=== PATIENT | male | born 1940 | race Caucasian/White ===

== ENCOUNTER 2024-01-21 18:19 | Inpatient (IN) ==
[2024-01-21 18:49] LABS: ABS Lymphocytes 0.5 10^3/uL (1.0-4.8); ABS Monocytes 0.9 10^3/uL (0.0-1.1); ABS Neutrophils 8.7 10^3/uL (1.5-7.6); Eosinophil % 0.3 %; Hematocrit 28.1 % (38-53); Hemoglobin 8.8 g/dL (13.2-16.3); Lymphocyte % 5.1 %; Mean Corpuscular Hemoglobin 26.6 pg (27-33); Mean Corpuscular Hgb Conc 31.3 g/dL (31-36); Mean Platelet Volume 8.7 fL (7.5-11.2); Platelet Count 207 10^3/uL (150-450); Red Cell Distribution Width 16.4 % (12-17); White Blood Count 10.1 10^3/uL (3.6-10.2)
[2024-01-21 18:59] LABS: INR 2.43 (0.85-1.14)
[2024-01-21 20:01] LABS: Albumin 3.9 g/dL (3.2-5.2); Albumin/Globulin Ratio 1.4 (1-3); C Reactive Protein 55.28 mg/L (<8.01); Calcium 9.3 mg/dL (8.6-10.3); Creatinine, Serum 3.41 mg/dL (0.67-1.17); Globulin 2.7 g/dL (2-4); Potassium 7.9 mmol/L (3.5-5.0); Total Bilirubin 0.7 mg/dL (0.2-1.0); Total Protein 6.6 g/dL (6.4-8.9); eGFR CKD-EPI 16.9 (>60)
[2024-01-21] MEDS: NS 0.9% 1000 ml BAG 1,000 ML IV.FLUID IV ONE (20:06)
[2024-01-21 20:12] LABS: High Sensitivity Troponin 1 Hr 21 pg/mL (<20)
[2024-01-21] MEDS: Albuterol 2.5mg/3 ml (0.083%) NEB.SOLN INH ONE (20:23)
[2024-01-21] MEDS: Sodium Bicarbonate 8.4% SYR 50 ml SYRINGE IV ONE (20:23)
[2024-01-21] MEDS: CALCIUM GLUCONATE 1GM/50ML NS 1 GM/50 ML BAG IV ONE (20:23)
[2024-01-21] MEDS: Bumetanide IV 0.25 MG/ML 4 ml VIAL (1 mg) IV SLOW PU ONE (20:58)
[2024-01-21] MEDS ORDERED: Calcium Gluconate 3 GM in NS 0.9% 250 ml 250 ML IVPB ONE (21:07)
[2024-01-21] MEDS: CALCIUM GLUCONATE 1GM/50ML NS BAG IV SCH (21:16)
[2024-01-21] MEDS: Chlorothiazide IV 500 mg VIAL IV ONE (21:38)
[2024-01-21] MEDS ORDERED: NS 0.9% 1000 ml BAG 100 ML IV PRN (21:46)
[2024-01-21] MEDS ORDERED: NS 0.9% 1000 ml BAG 200 ML IV PRN (21:46)
[2024-01-21] MEDS: Sodium Polystyrene ORAL.SUSP 15 GM/60 ML BTL PO ONE (21:49)
[2024-01-21] MEDS: Lidocaine 1% VIAL 10 MG/ML 30 ML VIAL ONE (22:07)
[2024-01-21] MEDS: Albumin Human 25% 0 GM/0 ML BTL IV ONE (22:08)
[2024-01-21] MEDS: Heparin 1,000 UNIT/ML 10 ml (10,000 UNITS) CATHLAB/DIALYSIS DIALYSIS PRN (23:44)
[2024-01-22] MEDS ORDERED: Dextrose 50% Syringe 50 ml 25 GM/50 ML SYRINGE IV PUSH PRN (01:59)
[2024-01-22] MEDS: Norepinephrine 4 MG/250mL D5W 4,000 MCG/250 ML BAG IV ONE (05:01)
[2024-01-22 05:35] LABS: ABS Eosinophils 0.1 10^3/uL (0.0-0.5); ABS Lymphocytes 0.7 10^3/uL (1.0-4.8); ABS Monocytes 0.8 10^3/uL (0.0-1.1); ABS Neutrophils 6.4 10^3/uL (1.5-7.6); ABS Nucleated RBC 0.01 10^3/ul; Eosinophil % 0.8 %; Hematocrit 27.3 % (38-53); Hemoglobin 8.8 g/dL (13.2-16.3); Lymphocyte % 8.5 %; Mean Corpuscular Hemoglobin 26.8 pg (27-33); Mean Corpuscular Hgb Conc 32.3 g/dL (31-36); Mean Corpuscular Volume 83.2 fL (80-97); Mean Platelet Volume 8.1 fL (7.5-11.2); Nucleated Red Blood Cells % 0.1 %/100WBC (0.0-0.8); Platelet Count 178 10^3/uL (150-450); Red Blood Count 3.28 10^6/uL (4.06-5.63); Red Cell Distribution Width 16.3 % (12-17)
[2024-01-22 05:52] LABS: Urine Appearance Turbid; Urine Bilirubin Negative (Negative); Urine Blood 3+ (Negative); Urine Color Yellow; Urine Glucose Negative (Negative); Urine Ketones Negative (Negative); Urine Nitrite Negative (Negative); Urine Protein Negative (Negative); Urine Specific Gravity 1.009 (1.002-1.030); Urine Urobilinogen Negative (Negative)
[2024-01-22 05:59] LABS: % Iron Saturation 9 % (15-55); ALT 34 U/L (7-52); AST 29 U/L (13-39); Albumin 3.8 g/dL (3.2-5.2); Albumin/Globulin Ratio 1.5 (1-3); Alkaline Phosphatase 142 U/L (35-149); Anion Gap 6 mmol/L (2-16); Blood Urea Nitrogen 44 mg/dL (6-24); CO2 Carbon Dioxide 28 mmol/L (22-32); Calcium 9.3 mg/dL (8.6-10.3); Chloride 106 mmol/L (101-111); Creatinine, Serum 2.22 mg/dL (0.67-1.17); Globulin 2.6 g/dL (2-4); Glucose 74 mg/dL (70-100); Iron 26 ug/dL (50-212); Magnesium 1.7 mg/dL (1.9-2.7); Potassium 5.1 mmol/L (3.5-5.0); Sodium 140 mmol/L (135-145); Total Iron Binding Capacity 294 mcg/dL (250-450); Total Protein 6.4 g/dL (6.4-8.9); Transferrin 210 mg/dL (203-362); eGFR CKD-EPI 28.3 (>60)
[2024-01-22 06:00] LABS: .Transferrin 210 mg/dL (203-362); Unsaturated Iron Binding 268 ug/dL
[2024-01-22 06:21] LABS: Ferritin 280.4 ng/mL (24-336)
[2024-01-22 06:24] LABS: Folate > 20.00 ng/mL (5.90-24.80)
[2024-01-22 06:26] LABS: Vitamin B12 691 pg/mL (180-914)
[2024-01-22 06:40] LABS: Urine Bacteria Absent /HPF (Absent); Urine Red Blood Cell 3+(>10/hpf) /HPF (0-Trace); Urine White Blood Cell 3+(>20/hpf) /HPF (0-Trace)
[2024-01-22 06:56] LABS: Hepatitis B Surface Ab Not Immune (Immune)
[2024-01-22] MEDS: Sulfur Hexaflouride MICROSPHR 25 MG VIAL IV PRN (08:42)
[2024-01-22] MEDS: Isosorbide Mononit ER 30mg TAB PO SCH (09:04)
[2024-01-22] MEDS: Bumetanide IV 0.25 MG/ML 10 ml VIAL (2.5 mg) IV SLOW PU ONE (09:40)
[2024-01-22] MEDS: Chlorothiazide IV 500 mg VIAL IV ONE (09:44)
[2024-01-22 15:02] LABS: Hepatitis B Surface Antigen Nonreactive (Nonreactive)
[2024-01-22] MEDS: Albumin Human 25% 25 GM/100 ML BTL IV PRN (15:52)
[2024-01-22] MEDS: Magnesium Sulfate IV 1GM/100ML 1 GM/100 ML BAG IV ONE (18:20)
[2024-01-22] MEDS: Magnesium Sulfate 2 gm BAG 2 GM/50 ML BAG IVPB ONE (18:54)
[2024-01-22] MEDS: Bumetanide IV 0.25 MG/ML 4 ml VIAL (1 mg) IV SLOW PU SCH (21:15)
[2024-01-23 04:48] LABS: ABS Basophils 0.1 10^3/uL (0.0-0.1); ABS Eosinophils 0.1 10^3/uL (0.0-0.5); ABS Monocytes 1.1 10^3/uL (0.0-1.1); ABS Neutrophils 7.9 10^3/uL (1.5-7.6); Hemoglobin 8.4 g/dL (13.2-16.3); Lymphocyte % 9.7 %; Mean Corpuscular Hemoglobin 26.5 pg (27-33); Mean Corpuscular Hgb Conc 32.1 g/dL (31-36); Mean Corpuscular Volume 82.5 fL (80-97); Mean Platelet Volume 8.1 fL (7.5-11.2); Platelet Count 188 10^3/uL (150-450); Red Blood Count 3.15 10^6/uL (4.06-5.63); Red Cell Distribution Width 16.2 % (12-17); White Blood Count 10.2 10^3/uL (3.6-10.2)
[2024-01-23 05:30] LABS: Albumin 3.6 g/dL (3.2-5.2); Albumin/Globulin Ratio 1.5 (1-3); Calcium 8.9 mg/dL (8.6-10.3); Creatinine, Serum 2.62 mg/dL (0.67-1.17); Globulin 2.4 g/dL (2-4); Magnesium 2.4 mg/dL (1.9-2.7); Phosphorus 2.8 mg/dL (2.5-5.0); Total Bilirubin 1.2 mg/dL (0.2-1.0); eGFR CKD-EPI 23.2 (>60)
[2024-01-23] MEDS ORDERED: Dextrose 50% Syringe 50 ml 25 GM/50 ML SYRINGE IV PUSH PRN (12:51)
[2024-01-23] MEDS ORDERED: Albumin Human 25% 12.5 GM/50 ML BTL IV ONE (15:28)
[2024-01-23] MEDS: Chlorothiazide IV 500 MG in NS 0.9% 50 ML 50 ML IV ONE (20:38)
[2024-01-24 06:27] LABS: ABS Basophils 0.1 10^3/uL (0.0-0.1); ABS Eosinophils 0.1 10^3/uL (0.0-0.5); ABS Lymphocytes 1.1 10^3/uL (1.0-4.8); ABS Monocytes 1.3 10^3/uL (0.0-1.1); ABS Neutrophils 8.3 10^3/uL (1.5-7.6); ABS Nucleated RBC 0.01 10^3/ul; Eosinophil % 1.1 %; Hematocrit 27.3 % (38-53); Hemoglobin 8.8 g/dL (13.2-16.3); Mean Corpuscular Hemoglobin 27.2 pg (27-33); Mean Corpuscular Hgb Conc 32.4 g/dL (31-36); Mean Corpuscular Volume 83.8 fL (80-97); Mean Platelet Volume 8.2 fL (7.5-11.2); Nucleated Red Blood Cells % 0.1 %/100WBC (0.0-0.8); Platelet Count 200 10^3/uL (150-450); Red Blood Count 3.26 10^6/uL (4.06-5.63); Red Cell Distribution Width 16.4 % (12-17); White Blood Count 10.8 10^3/uL (3.6-10.2)
[2024-01-24 06:36] LABS: Albumin 3.6 g/dL (3.2-5.2); Albumin/Globulin Ratio 1.5 (1-3); Calcium 8.6 mg/dL (8.6-10.3); Creatinine, Serum 3.16 mg/dL (0.67-1.17); Globulin 2.4 g/dL (2-4); Magnesium 1.9 mg/dL (1.9-2.7); Phosphorus 3.5 mg/dL (2.5-5.0); Total Bilirubin 1.1 mg/dL (0.2-1.0); eGFR CKD-EPI 18.5 (>60)
[2024-01-24] MEDS ORDERED: NF: Dulaglutide (NF) 0.75 MG/0.5 ML SYRINGE SUBCUT SCH (09:00)
[2024-01-24] MEDS: Rocuronium 50 mg VIAL 10 mg/ml 5 ml VIAL (50 mg) ONE (10:03)
[2024-01-24] MEDS: Etomidate 40 mg/20 ml (2 MG/ML) 20 ml VIAL (40 mg) ONE (10:03)
[2024-01-24] MEDS: Chlorothiazide IV 500 mg VIAL IV ONE (10:10)
[2024-01-24] MEDS: Bumetanide IV 0.25 MG/ML 4 ml VIAL (1 mg) IV SLOW PU SCH (11:04)
[2024-01-24] MEDS: Chlorothiazide IV 500 mg VIAL IV SCH (11:05)
[2024-01-25 06:30] LABS: ABS Basophils 0.1 10^3/uL (0.0-0.1); ABS Eosinophils 0.1 10^3/uL (0.0-0.5); ABS Neutrophils 7.2 10^3/uL (1.5-7.6); Eosinophil % 1.3 %; Hematocrit 26.1 % (38-53); Hemoglobin 8.7 g/dL (13.2-16.3); Lymphocyte % 10.6 %; Mean Corpuscular Hemoglobin 27.6 pg (27-33); Mean Corpuscular Hgb Conc 33.4 g/dL (31-36); Mean Corpuscular Volume 82.8 fL (80-97); Mean Platelet Volume 8.4 fL (7.5-11.2); Platelet Count 171 10^3/uL (150-450); Red Blood Count 3.15 10^6/uL (4.06-5.63); Red Cell Distribution Width 16.4 % (12-17); White Blood Count 9.4 10^3/uL (3.6-10.2)
[2024-01-25 06:43] LABS: Albumin 3.4 g/dL (3.2-5.2); Albumin/Globulin Ratio 1.5 (1-3); Calcium 8.4 mg/dL (8.6-10.3); Creatinine, Serum 3.7 mg/dL (0.67-1.17); Globulin 2.3 g/dL (2-4); Magnesium 1.8 mg/dL (1.9-2.7); Potassium 4.8 mmol/L (3.5-5.0); Total Bilirubin 1.1 mg/dL (0.2-1.0); Total Protein 5.7 g/dL (6.4-8.9); eGFR CKD-EPI 15.3 (>60)
[2024-01-25] MEDS ORDERED: Iron Sucrose 20 MG/ML 5 ML VIAL IV PUSH SCH (09:00)
[2024-01-25] MEDS: Iron Sucrose 200 MG in NS 0.9% 100 ml IVPB SCH (13:42)
[2024-01-25 15:57] LABS: Lambda Free Light Chain, S 6.48 mg/dL
[2024-01-25 16:39] LABS: Myeloperoxidase Antibody <0.2 U; Proteinase 3 <0.2 U
[2024-01-25 19:14] LABS: Complement C3 129 mg/dL (75 - 175)
[2024-01-26 16:40] LABS: Flag, M-protein Isotype Negative (Negative); Immunoglobulin A (IgA), S 281 mg/dL (61 - 356); Immunoglobulin G (IgG), S 918 mg/dL (767 - 1590); Immunoglobulin M (IgM), S 30 mg/dL (37 - 286)
[2024-01-27 06:59] LABS: Calcium 8.5 mg/dL (8.6-10.3); Creatinine, Serum 4.05 mg/dL (0.67-1.17); Potassium 4.5 mmol/L (3.5-5.0); eGFR CKD-EPI 13.8 (>60)
[2024-01-27 07:04] LABS: ABS Basophils 0.1 10^3/uL (0.0-0.1); ABS Eosinophils 0.1 10^3/uL (0.0-0.5); ABS Monocytes 1.2 10^3/uL (0.0-1.1); ABS Neutrophils 7.7 10^3/uL (1.5-7.6); ABS Nucleated RBC 0.01 10^3/ul; Eosinophil % 1.5 %; Hematocrit 25.5 % (38-53); Hemoglobin 8.5 g/dL (13.2-16.3); Lymphocyte % 10.2 %; Mean Corpuscular Hemoglobin 27.5 pg (27-33); Mean Corpuscular Hgb Conc 33.5 g/dL (31-36); Mean Corpuscular Volume 82.1 fL (80-97); Mean Platelet Volume 8.5 fL (7.5-11.2); Nucleated Red Blood Cells % 0.1 %/100WBC (0.0-0.8); Platelet Count 156 10^3/uL (150-450); Red Blood Count 3.11 10^6/uL (4.06-5.63); Red Cell Distribution Width 16.4 % (12-17); White Blood Count 10.1 10^3/uL (3.6-10.2)
[2024-01-27] MEDS: Nystatin TOP POWDER 15 GM BTL TOPICAL SCH (21:59)
[2024-01-28 06:17] LABS: Hematocrit 26.6 % (38-53); Hemoglobin 8.7 g/dL (13.2-16.3); Mean Corpuscular Hemoglobin 26.9 pg (27-33); Mean Corpuscular Hgb Conc 32.6 g/dL (31-36); Mean Corpuscular Volume 82.5 fL (80-97); Mean Platelet Volume 7.9 fL (7.5-11.2); Platelet Count 160 10^3/uL (150-450); Red Blood Count 3.22 10^6/uL (4.06-5.63); Red Cell Distribution Width 16.4 % (12-17)
[2024-01-28 07:20] LABS: Calcium 8.3 mg/dL (8.6-10.3); Creatinine, Serum 3.76 mg/dL (0.67-1.17); eGFR CKD-EPI 15.1 (>60)
[2024-01-29 08:12] LABS: Hemoglobin 8.8 g/dL (13.2-16.3); Mean Corpuscular Hemoglobin 27.9 pg (27-33); Mean Corpuscular Hgb Conc 33.8 g/dL (31-36); Mean Corpuscular Volume 82.5 fL (80-97); Mean Platelet Volume 8.4 fL (7.5-11.2); Platelet Count 133 10^3/uL (150-450); Red Blood Count 3.15 10^6/uL (4.06-5.63); Red Cell Distribution Width 16.4 % (12-17); White Blood Count 10.8 10^3/uL (3.6-10.2)
[2024-01-29 08:44] LABS: Calcium 8.5 mg/dL (8.6-10.3); Creatinine, Serum 4.21 mg/dL (0.67-1.17); Potassium 5.5 mmol/L (3.5-5.0); eGFR CKD-EPI 13.1 (>60)
[2024-01-29] MEDS ORDERED: Clindamycin 600 MG/NS BAG(*) 600 MG/50 ML BAG ONE (12:02)
[2024-01-29] MEDS: Clindamycin 600 MG/D5W BAG 600 MG/50 ML BAG IV ONE (12:08)
[2024-01-29] MEDS ORDERED: Midazolam 5 mg/5 ml VIAL 1 mg/ml 5 ml VIAL (5 mg) ONE (12:24)
[2024-01-29] MEDS ORDERED: Heparin 2 UNITS/ML 1000 mls 1,000 ML IV ONE (12:24)
[2024-01-29] MEDS ORDERED: fentaNYL 100 mcg/2 ml 50 MCG/ML VIAL ONE (12:24)
[2024-01-29] MEDS ORDERED: Lidocaine 1% MPF 5 ML VIAL ONE (12:24)
[2024-01-29] MEDS ORDERED: Heparin 1,000 UNIT/ML 10 ml (10,000 UNITS) CATHLAB/DIALYSIS ONE (12:24)
[2024-01-30 09:49] VITALS: BP 130/55
== END 2024-01-30 11:55 | disposition home or self-care (01) | DRG 291 ==
LOC: ED 18:19 → EDHOLD 21:17 → SUATTDRO 21:17 → ICU 21:29 → MEDTELE 21:41 → ICU 22:39 → MEDTELE 01-23 11:29
PROVIDERS: ADMIT Student in an Organized Health Care Education/Training Program; ATTEND Hospitalist